=== PATIENT | female | born 1995 | race Two or more races ===

== ENCOUNTER 2020-08-18 17:16 | Emergency (ER) | payer OTHER ==
[~2020-08-18] VITALS: Ht 154.9 cm; Wt 47.6 kg
--- NOTE | 2020-08-20 00:55 | PATH ---
[facility] [address], [place] [address] Signed ORDERING PHYSICIAN: Hamida Fernández MD PATIENT NAME: АНДРЕЙ RODRIGUEZ GENDER: F : 1995 Prior History: No cases found. SPECIMEN(S): No Source Given MOLECULAR PATHOLOGY RESULTS: SARS-CoV-2 Not Detected ADDITIONAL NOTES.: The [employer] Fusion SARS-CoV-2 Assay is a multiplex real-time PCR (RT-PCR) in vitro diagnostic test intended for the qualitative detection of RNA from SARS-CoV-2 from individuals who meet COVID-19 clinical and/or epidemiological criteria. In general, SARS-CoV-2 RNA can be detected during the acute phase of infection. Positive results indicate the presence of SARS-CoV-2 RNA. Clinical correlation with patient history and other diagnostic information is necessary to determine patient infection status. Positive results do not rule out bacterial infection or co-infection with other viruses. Negative results do not preclude SARS-CoV-2 infection and should not be used as the sole basis for patient management decisions. Negative results must be combined with other clinical observations, patient history, and epidemiological information. The [employer] Fusion SARS-CoV-2 Assay is not yet approved or cleared by the [place] FDA. When there are no FDA-approved or cleared tests available, and other criteria are met, FDA can make tests available under an emergency access mechanism called an Emergency Use Authorization (EUA). The EUA for this test is supported by the Natural Resource Technician of Health and Human Service's (HHS's) declaration that circumstances exist to justify the emergency use of in vitro diagnostics for the detection and/or diagnosis of the virus that causes COVID-19. This EUA will remain in effect for the duration of the COVID-19 declaration justifying emergency of IVDs, unless it is terminated or revoked by FDA, after which the test may no longer be used. The Tull[employer] Fusion SARS-CoV-2 Assay is for use only under EUA PATIENT NAME: АНДРЕЙ RODRIGUEZ ZULEMA PATHOLOGY DATE OF : [birth year] REPORT #: [id number] PHYSICIAN: PAIGE PATHOLOGY PCP: TERESA RIVERA REPORT IS CONFIDENTIAL AND NOT TO BE RELEASED WITHOUT AUTHORIZATION [address] [place], [place] [address] Signed in laboratories certified under the Clinical Laboratory Improvement Amendments of 1988 (CLIA) to perform high complexity tests. [facility] is certified under CLIA to perform high complexity clinical laboratory testing. PERFORMING LABORATORY.: Molecular testing was performed by [facility] [place] [address] (Square Cutter: Andrew Marquis D.O.; CLIA#: [id number]) Diagnostician: System Interface Pathologist Electronically Signed 08/20/2020 Copies: ~ PATIENT NAME: АНДРЕЙ RODRIGUEZ PATHOLOGY DATE OF : [birth year] REPORT #: [id number] PHYSICIAN: PAIGE DIAZ PCP: TERESA RIVERA REPORT IS CONFIDENTIAL AND NOT TO BE RELEASED WITHOUT AUTHORIZATION
--- NOTE | 2020-08-20 20:45 | EKG ---
[facility] [address] [facility] [place], [place] [address] Signed Normal sinus rhythm with sinus arrhythmia Normal ECG No previous ECGs available Confirmed by HERNESTO ELIZONDO DO ([id number]) on 08/20/2020 8:44:53 PM Electronically Signed By: HERNESTO ELIZONDO DO 08/20/20 2045 PATIENT NAME: TIAGO RODRIGUEZNA DONNELL SANTOS ZULEMA Electrocardiogram DATE OF : [birth year] PHYSICIAN: HERNESTO ELIZONDO DO REPORT #: [id number] REPORT IS CONFIDENTIAL AND NOT TO BE RELEASED WITHOUT AUTHORIZATION
== END 2020-08-21 16:04 ==
LOC: ED 17:16
DX: F23 Brief psychotic disorder (principal); Z20.828 Contact with and (suspected) exposure to other viral communicable diseases; Z88.5 Allergy status to narcotic agent
CPT/HCPCS: 70450; 80053; 80176; 81001; 84443; 84703; 85025; 93005; 93010; 99285-25; C9803; G0480